=== PATIENT | female | born 1980 | race Caucasian/White ===

== ENCOUNTER 2019-08-15 20:54 | Emergency (ER) | payer SELFPAY ==
[~2019-08-15] VITALS: Ht 160 cm; Wt 86.2 kg
[2019-08-15 20:55] VITALS: BP 122/90
--- NOTE | 2019-08-15 20:55 | NUR ---
TO BED # 05 AMBULATORY
--- NOTE | 2019-08-15 20:55 | NUR ---
38 Y/O FEMALE BIB PARTNER FOR ABDOMINAL/LEFT FLANK PAIN, NAUSEA SINCE LAST WEEK, UNABLE TO SLEEP , DRINK, OR EAT. ABDOMINAL SOUNDS HEARD THROUGHOUT; SLIGHT TENDERNESS UPON PALPATION. PAIN IS A 6/10 AT THIS TIME. ERMD MADE AWARE OF STATUS. SIDE RAILSX1. WILL CONTINUE TO MONITOR. VSS. PMH: CHOLECYSTITIS; ASTHMA; VARICES RX:ALBUTEROL NKDA Addendum: 08/15/19 at 2250 by MEDDI PMH:SITUS INVERSUS; DEXTROCARDIA; NO PMH OF CHOLECYSTITIS
--- NOTE | 2019-08-15 21:13 | NUR ---
Dr. Soto examining patient.
[2019-08-15] MEDS ORDERED: LIDOCAINE VISCOUS 2% 20 ML UDC PO ONE (21:20)
[2019-08-15] MEDS ORDERED: FAMOTIDINE 20 MG TAB PO ONE (21:20)
[2019-08-15] MEDS ORDERED: ALUMINUM HYD/MAG/SIMETHICONE 30 ML UDC PO ONE (21:20)
[2019-08-15] MEDS ORDERED: ONDANSETRON 4 MG TAB PO ONE (21:20)
--- NOTE | 2019-08-15 21:46 | NUR ---
LAB AT BEDSIDE.
[2019-08-15 21:51] LABS: APPEARANCE,URINE CLEAR (CLEAR); BILIRUBIN,URINE NEGATIVE (NEGATIVE); BLOOD, URINE NEGATIVE (NEGATIVE); COLOR,URINE YELLOW (YELLOW); LEUKOCYTE ESTERASE ,URINE NEGATIVE (NEGATIVE); NITRITE, URINE NEGATIVE (NEGATIVE); UGLUCOSE NEGATIVE (NEGATIVE)
[2019-08-15] MEDS ORDERED: MORPHINE SULFATE 4 MG/ML SYR IVP ONE (22:05)
[2019-08-15 22:28] LABS: BASOPHILS % (AUTO) 0.5 % (0.0-2.0); EOSINOPHILS # (AUTO) 0.1 K/uL (0-0.4); EOSINOPHILS % (AUTO) 1.9 % (0.0-4.0); HEMATOCRIT 40.7 % (36-48); HEMOGLOBIN 13.5 g/dL (12.0-16.0); LYMPHOCYTES # (AUTO) 2.5 K/uL (2.5-16.5); MEAN CORPUSCULAR HEMOGLOBIN 30 pg (27-31); MEAN CORPUSCULAR HGB CONC 33 g/dL (33-37); MEAN CORPUSCULAR VOLUME 90.3 fL (80-94); MONOCYTES # (AUTO) 0.4 K/uL (0.8-1.0); MONOCYTES % (AUTO) 7.3 % (1.7-9.3); NEUTROPHILS # (AUTO) 2.9 K/uL (1.8-7.7); NEUTROPHILS % (AUTO) 48.3 % (42.2-75.2); PLATELET COUNT (AUTO) 251 K/uL (140-450); RED BLOOD CELL COUNT(AUTO) 4.51 MIL/uL (4.20-5.40); RED CELL DISTRIBUTION WIDTH 12.5 % (11.6-13.7)
[2019-08-15 22:50] LABS: ALBUMIN 4.8 g/dL (3.4-5.0); CARBON DIOXIDE 26.8 mmol/L (21-32); CREATININE 0.7 mg/dL (0.6-1.3); POTASSIUM 3.8 mmol/L (3.5-5.1); TOTAL BILIRUBIN 0.3 mg/dL (0.0-1.0)
--- NOTE | 2019-08-15 23:12 | NUR ---
PT TAKEN TO CT
--- NOTE | 2019-08-16 00:28 | NUR ---
ERMD AT BEDSIDE.
[2019-08-16 00:40] VITALS: BP 131/71
== END 2019-08-16 00:40 | disposition home or self-care (01) ==
LOC: MED 20:54
DX: R10.32 Left lower quadrant pain (principal); J45.909 Unspecified asthma, uncomplicated; Z90.49 Acquired absence of other specified parts of digestive tract
CPT/HCPCS: 36415; 74177; 80053; 81003; 81025; 83690; 85025; 96374; 99284; J2270; Q0162; Q9967